=== PATIENT | male | born 1975 | race Caucasian/White ===

== ENCOUNTER 2018-02-07 09:41 | Outpatient (CLI) | END 2018-02-07 09:42 | disposition home or self-care (01) | LOC: RHC-LAB 09:41 | PROVIDERS: ATTEND Emergency Medicine | DX: F33.1 Major depressive disorder, recurrent, moderate (principal); F41.1 Generalized anxiety disorder; N40.1 Benign prostatic hyperplasia with lower urinary tract symptoms; R35.0 Frequency of micturition | CPT/HCPCS: 36415; 80053; 85025 ==

== ENCOUNTER 2018-03-08 12:55 | Inpatient (IN) | payer OTHER ==
[2018-03-08 13:33] VITALS: BMI 31.2
--- NOTE | 2018-03-08 14:05 | ED.PDOC ---
General ED Provider: Dr. MANJIT ADAMS Chief Complaint: Psychiatric Complaint Stated Complaint: PSYCH ISSUES; SEVERE DEPRESSION , PARANOIA. States released from [facility] approximately 6 months ago and restriced from leaving State. Had ankle monitor in place. Family from [place] as is his ex girlfriend. She has been attempting to help him and secured a place in a local motel. Apparenlty met another individual who supplied him with Meth. Pt stopped his psych meds and has been very suspicious and paranoid about his situation-thinking his GF sleeping arround etc and having trouble with reality.Has been to [facility] in past.Stopped his meds.. Came here for evaluation in an extremely fragile state. Accompanied in room with Joycelyn Banks RN Time Seen by Physician: 13:20 Mode of Arrival: Walk-In Information Source: Patient Exam Limitations: No limitations, Clinical condition Primary Care Provider: [facility] Nursing and Triage Documentation Reviewed and Agree: Yes Reviewed sepsis parameters & appropriate labs ordered?: Yes System Inflammatory Response Syndrome: Not Applicable Sepsis Protocol: For patient's 13 years and over: Temp is 96.8 and below OR 101 and greater Pulse >90 BPM Resp >20/minute Acutely Altered Mental Status Are patient's symptoms suggestive of a new infection, such as: -Pneumonia -Skin, Soft Tissue -Endocarditis -UTI -Bone, Joint Infection -Implantable Device -Acute Abdominal Infection -Wound Infection -Meningitis -Blood Stream Catheter Infection -Unknown System Inflammatory Response Syndrome: Not Applicable Psychological Complaint Exam - Psychiatric Complaint/Exam Patient Complains Of: Present: Depression, Suicidal thoughts Symptoms Are: Still present Timing: Constant Episodes Lasting: Hours Initial Severity: Severe Current Severity: Moderate Character: Present: Manic, Depressed, Fearful, Anxious, Angry, Frustrated Aggravating: Reports: Recent stress, Alcohol use, Drug use, Medication noncompliance Associated Signs And Symptoms: Reports: Confused, Hallucinating, Paranoid behavior, Sleep disturbance Related History: Reports: Suicidal thoughts, Recent stressors, Drug ingestion. Denies: Suicidal plan, Suicidal gestures, Homicidal thoughts, Homicidal plan, Homicidal gestures, Prior attempts Completed Suicide Risk Factors: Male, , Living alone, Unemployed Patient Accompanied By: Friend Patient In Custody Of Police: No Social Withdrawal Present: Yes Social Isolation Present: Yes Prior Suicide Attempt: Yes Injury From Prior Suicide Attempt: No Related Surgical History: Reports: None Patient Uncooperative For Exam: No Mood: Present: Depressed, Guarded, Paranoid Appearance: Present: Clean Thought Process: Present: Flight of ideas Insight: Present: Poor Memory: Intact Judgement: Normal Danger To Others: No Patient Medically Stable For: Psych evaluation Differential Diagnoses: Anxiety, Depression, Acute Psychosis, Schizophrenia, Suicidal Ideation Review of Systems - Review Of Systems Constitutional: Reports: No symptoms Eyes: Reports: No symptoms Ears, Nose, Mouth, Throat: Reports: No symptoms Respiratory: Reports: No symptoms Cardiac: Reports: No symptoms GI: Reports: No symptoms : Reports: No symptoms Musculoskeletal: Reports: No symptoms Skin: Reports: No symptoms Neurological: Reports: No symptoms, Depressed, Emotional problems Endocrine: Reports: No symptoms Hematologic/Lymphatic: Reports: No symptoms All Other Systems: Reviewed and Negative Past Medical History - Past Medical History Endocrine: Reports: Dyslipidemia Cardiovascular: Reports: Hypertension Respiratory: Reports: None Hematological: Reports: None Gastrointestinal: Reports: GERD Genitourinary: Reports: Other (bph) Neuro/Psych: Reports: Anxiety, Depression, Schizophrenia, PTSD Musculoskeletal: Reports: None Cancer: Reports: None - Surgical History General Surgical History: Reports: Unknown - Family History Family History: Reports: Unknown - Social History Smoking Status: Current every day smoker Hx Substance Use: (UNKNOWN AT THIS TIME) Alcohol Screening: Occasionally Lives: Alone - Immunizations Tetanus Shot up to Date: No Physical Exam - Physical Exam Appearance: Well-appearing, No pain distress, Well-nourished Ill-appearing: Mild Pain Distress: None Eyes: WISAM, EOMI, Conjunctiva clear ENT: Ears normal, Nose normal, Oropharynx normal Respiratory: Airway patent, Breath sounds clear, Breath sounds equal, Respirations nonlabored Cardiovascular: RRR, Pulses normal, No rub, No murmur GI/: Soft, Nontender, No masses, Bowel sounds normal, No Organomegaly Musculoskeletal: Normal strength, ROM intact, No edema, No calf tenderness Skin: Warm, Dry, Normal color Neurological: Sensation intact, Motor intact, Reflexes intact, Cranial nerves intact, Alert, Oriented Psychiatric: Affect appropriate, Mood appropriate Re-Evaluation - Re-Evaluation Time of Re-Evaluation: 15:00 Status: Improved Vital Signs Stable: Yes Appearance: NAD Lungs: Clear Skin: Warm and Dry Neuro: Alert and Oriented X3 CV: RRR Physician Notification - Case Discussed Physician Notified: Henry Time of Notification: 18:00 (agreed to admisson ) Critical Care Note - Critical Care Note Total Time (mins): 60 Course - Course Hematology/Chemistry: 03/09/18 12:30 03/09/18 12:30 Orders, Labs, Meds: Lab Review 03/08/18 03/08/18 03/08/18 13:32 13:32 14:23 WBC 7.19 RBC 4.66 L Hgb 15.0 Hct 41.1 L MCV 88.2 MCH 32.2 H MCHC 36.5 H RDW Coeff of Umair 11.5 L Plt Count 228 Immature Gran % (Auto) 0.3 Neut % (Auto) 62.7 Lymph % (Auto) 23.8 [place] % (Auto) 12.1 H Eos % (Auto) 0.8 Baso % (Auto) 0.3 Immature Gran # (Auto) 0.0 Neut # (Auto) 4.5 Lymph # (Auto) 1.7 [place] # (Auto) 0.9 Eos # (Auto) 0.1 Baso # (Auto) 0.0 Sodium Potassium Chloride Carbon Dioxide Anion Gap BUN Creatinine Estimated GFR (MDRD) BUN/Creatinine Ratio Glucose Calcium Total Bilirubin AST ALT Alkaline Phosphatase Total Protein Albumin Globulin Albumin/Globulin Ratio TSH Free T4 Urine Color Yellow Urine Clarity Clear Urine pH 6.0 Ur Specific [place] 1.015 Urine Protein Negative Urine Glucose (UA) Negative Urine Ketones Trace Urine Blood Negative Urine Nitrite Negative Urine Bilirubin Negative Urine Urobilinogen 0.2 Ur Leukocyte Esterase Negative Urine Opiates Screen Positive Ur Oxycodone Screen Negative Urine Methadone Screen Negative Ur Propoxyphene Screen Negative Ur Barbiturates Screen Negative U Tricyclic Antidepress Negative Ur Phencyclidine Scrn Negative Ur Amphetamine Screen Positive U Methamphetamines Scrn Positive U Benzodiazepines Scrn Negative Urine Cocaine Screen Negative U Cannabinoids Screen Negative Plasma/Serum Alcohol 03/08/18 14:23 WBC RBC Hgb Hct MCV MCH MCHC RDW Coeff of Umair Plt Count Immature Gran % (Auto) Neut % (Auto) Lymph % (Auto) [place] % (Auto) Eos % (Auto) Baso % (Auto) Immature Gran # (Auto) Neut # (Auto) Lymph # (Auto) [place] # (Auto) Eos # (Auto) Baso # (Auto) Sodium 139 Potassium 3.5 Chloride 101 Carbon Dioxide 25 Anion Gap 16.5 BUN 9 Creatinine 0.85 Estimated GFR (MDRD) 99.00 BUN/Creatinine Ratio 10.58 Glucose 95 Calcium 9.8 Total Bilirubin 1.7 H AST 23 ALT 26 Alkaline Phosphatase 71 Total Protein 7.4 Albumin 4.3 Globulin 3.1 Albumin/Globulin Ratio 1.39 TSH 0.635 Free T4 1.12 Urine Color Urine Clarity Urine pH Ur Specific [place] Urine Protein Urine Glucose (UA) Urine Ketones Urine Blood Urine Nitrite Urine Bilirubin Urine Urobilinogen Ur Leukocyte Esterase Urine Opiates Screen Ur Oxycodone Screen Urine Methadone Screen Ur Propoxyphene Screen Ur Barbiturates Screen U Tricyclic Antidepress Ur Phencyclidine Scrn Ur Amphetamine Screen U Methamphetamines Scrn U Benzodiazepines Scrn Urine Cocaine Screen U Cannabinoids Screen Plasma/Serum Alcohol < 10.0 Orders Category Date Time Status ADMIT PATIENT INPATIENT .TO SCU (MONITORED BED) ADMISSION 03/08/18 18:34 Active EKG-(IP & OP ONLY) Routine CARDIO 03/08/18 18:14 Completed ACTIVITY .Up ad Kalee CARE 03/08/18 18:13 Active INTAKE & OUTPUT Q8HR CARE 03/08/18 18:11 Active INTAKE & OUTPUT Q8HR CARE 03/08/18 18:13 Inactive TELEMETRY MONITORING TELE CARE 03/08/18 18:35 Active VITAL SIGNS Q4HR CARE 03/08/18 18:13 Active REGULAR DIET DIETARY 03/08/18 Dinner Ordered Mental Health Consult [ED MENTAL HEALTH CONSULT] .ONCE EMERGENCY 03/08/18 14: 14 Active BLOOD ALCOHOL Stat LAB 03/08/18 14:23 Completed CBC W/ AUTO DIFF Stat LAB 03/08/18 14:23 Completed CMP [COMPREHENSIVE METABOLIC PANEL] Stat LAB 03/08/18 14:23 Completed FREE T4 (FREE THYROXINE) Stat LAB 03/08/18 14:23 Completed THYROID STIMULATING HORMONE Stat LAB 03/08/18 14:23 Completed UA [URINALYSIS C & S IF INDICATED] Stat LAB 03/08/18 13:32 Completed URINE DRUG SCREEN (RAPID FOR ED) [DRUG SCREEN, URINE, LAB 03/08/18 13:32 Completed RAPID] Stat Clonazepam [Klonopin] MEDS 03/08/18 16:25 Discontinued 1 mg PO ONCE STA Clonidine HCl [Catapres] MEDS 03/08/18 16:22 Discontinued 0.1 mg PO ONCE STA Enoxaparin Sodium [Lovenox] MEDS 03/08/18 18:30 Active 40 mg SUBCUT DAILY Lamotrigine [Lamictal] MEDS 03/08/18 16:30 Discontinued 25 mg PO BID Mirtazapine [Remeron] MEDS 03/08/18 16:26 Discontinued 15 mg PO ONCE STA RESUSCITATION STATUS Routine OTHERS 03/08/18 18:11 Ordered Medications Generic Name Dose Route Start Last Admin Trade Name Celestina PRN Reason Stop Dose Admin Alprazolam 1 mg 03/09/18 09:00 03/11/18 09:09 Xanax PO 1 mg BID HERMAN Administration Buspirone HCl 10 mg 03/08/18 21:00 03/11/18 09:10 Buspar PO 10 mg TID HERMAN Administration Enoxaparin Sodium 40 mg 03/08/18 18:30 03/11/18 09:10 Lovenox SUBCUT 40 mg DAILY HERMAN Administration Escitalopram Oxalate 20 mg 03/09/18 09:00 03/11/18 09:09 Lexapro PO 20 mg DAILY HERMAN Administration Lamotrigine 50 mg 03/09/18 21:00 03/10/18 22:04 Lamictal PO 50 mg BEDTIME HERMAN Administration Mirtazapine 15 mg 03/08/18 21:00 03/10/18 22:04 Remeron PO 15 mg BEDTIME HERMAN Administration Tamsulosin HCl 0.4 mg 03/08/18 21:00 03/11/18 09:10 Flomax PO 0.4 mg DAILY HERMAN Administration Venlafaxine HCl 150 mg 03/09/18 09:00 03/11/18 09:09 Effexor Xr PO 150 mg DAILY HERMAN Administration Discontinued Medications Generic Name Dose Route Start Last Admin Trade Name Celestina PRN Reason Stop Dose Admin Clonazepam 1 mg 03/08/18 16:25 03/08/18 16:55 Klonopin PO 03/08/18 16:26 1 mg ONCE STA Administration Clonidine 0.1 mg 03/08/18 16:22 03/08/18 16:55 Catapres PO 03/08/18 16:23 0.1 mg ONCE STA Administration Lamotrigine 25 mg 03/08/18 16:30 03/08/18 23:31 Lamictal PO Not Given BID HERMAN Lamotrigine 25 mg 03/08/18 21:00 Lamictal PO 2 at bedtime HERMAN Mirtazapine 15 mg 03/08/18 16:26 03/08/18 16:55 Remeron PO 03/08/18 16:27 15 mg ONCE STA Administration Non-Formulary Medication 1 mg 03/08/18 21:00 03/08/18 23:31 Alprazolam [Xanax] PO Not Given BID HERMAN Vital Signs: Temp Pulse Resp BP Pulse Ox 03/08/18 16:23 141/103 H 03/08/18 13:09 97.3 F L 95 H 20 162/115 H 97 Departure - Departure Time of Disposition: 18:30 Disposition: ADMITTED INPATIENT Discharge Problem: Schizophrenia, Anxiety and depression, BPH (benign prostatic hyperplasia) Condition: Good Pt referred to PMD for follow-up: Yes (Henry) IPMP verified?: No Allergies/Adverse Reactions: Allergies No Known Allergies Allergy (Unverified 01/13/18 10:21) Home Medications: Ambulatory Orders Buspirone HCl 10 mg PO TID 01/13/18 Lamotrigine 50 mg PO BEDTIME 01/13/18 Mirtazapine 15 mg PO BEDTIME 01/13/18 Tamsulosin HCl 0.4 mg PO d 01/13/18 Venlafaxine HCl [Effexor Xr] 150 mg PO DAILY 03/08/18 Transfer Form Completed: No Disposition Discussed With: Patient Additional Information: Medications initiated afterwhich patient calmed down and slept well. Mental health here to see patient. Rec referral for inpatient tx however due to pos urine drug screen with METH will not qualifiy therfore will be admitted here for observation and treatment. Discussed with Dr Figueroa who agrees to accept patient for admission. Discussed with patient who concurs Discharge Problem: Schizophrenia Qualifiers: Schizophrenia type: paranoid schizophrenia Qualified Code(s): F20.0 - Paranoid schizophrenia BPH (benign prostatic hyperplasia) Qualifiers: Lower urinary tract symptom presence: symptoms present Lower urinary tract symptom detail: weak urinary stream Qualified Code(s): N40.1 - Benign prostatic hyperplasia with lower urinary tract symptoms; R39.12 - Poor urinary stream; R39.12 - Poor urinary stream
[2018-03-08] MEDS ORDERED: CATAPRES PO STA (16:22)
[2018-03-08] MEDS ORDERED: KLONOPIN PO STA (16:25)
[2018-03-08] MEDS ORDERED: REMERON PO STA (16:26)
[2018-03-08] MEDS ORDERED: LAMICTAL PO SCH (21:00)
[2018-03-08] MEDS ORDERED: NON-FORMULARY MEDICATION (Alprazolam [Xanax] 1 MG) PO SCH (21:00)
[2018-03-08] MEDS: LAMICTAL PO SCH ×2 (21:02→23:31)
[2018-03-08] MEDS: LOVENOX SUBCUT SCH (21:02)
[2018-03-08] MEDS ORDERED: LEXAPRO ONE (21:18)
[2018-03-08] MEDS ORDERED: XANAX ONE (21:18)
[2018-03-08] MEDS: BUSPAR PO SCH (23:31)
[2018-03-08] MEDS: REMERON PO SCH (23:31)
[2018-03-09] MEDS ORDERED: NON-FORMULARY MEDICATION (Venlafaxine Hcl [Effexor Xr] 150 MG) PO SCH (09:00)
[2018-03-09] MEDS ORDERED: NON-FORMULARY MEDICATION (Escitalopram Oxalate [Lexapro] 20 MG) PO SCH (09:00)
[2018-03-09] MEDS: BUSPAR PO SCH ×3 (09:04→21:21)
[2018-03-09] MEDS: EFFEXOR XR PO SCH (09:05)
[2018-03-09] MEDS: XANAX PO SCH ×2 (09:07→21:19)
[2018-03-09] MEDS: LEXAPRO PO SCH (09:07)
[2018-03-09] MEDS: FLOMAX PO SCH ×2 (09:09→09:13)
[2018-03-09] MEDS: LOVENOX SUBCUT SCH (09:10)
[2018-03-09] MEDS: REMERON PO SCH (21:19)
[2018-03-09] MEDS: LAMICTAL PO SCH (21:19)
--- NOTE | 2018-03-10 07:11 | ER ---
HISTORY OF PRESENT ILLNESS: This 43-year-old male patient presented to the emergency room requesting psychiatric evaluation. He states that he has been experiencing a state of mental deterioration and has not been compliant with his medication. He has a known history of paranoid schizophrenia and PTSD. He stopped his medication several weeks ago. Also of interest is that he was released from group home approximately 6 months ago. He stopped all of his medications sometime in mid January. He previously states he had been on Lexapro, Remeron, Buspirone , Alprazolam, Tamsulosin, Mirtazapine, Lamotrigine. He is accompanied by a female acquaintance that has been acquainted with him for several years and apparently they at some point were in a relationship.Since he has been released from group home he was on a monitored ankle bracelet up until the last several weeks. He has not been allowed to leave the [facility]. He is originally from [place]. Arrangements were made by his female friend, who found living arrangements for him to live in a local hotel and that is all he could afford. She states that this has resulted in situations in that he has been exposed to other individuals who apparently have provided him with illicit drugs including methamphetamine. He states that he has just had it and has contemplated suicide. He states he feels so isolated in the fact that he lives by himself and has no local acquaintances other than individuals at the hotel that has befriended him. He is here to seek mental health evaluation and assistance with his condition. [facility] has been requested for consult. PAST MEDICAL HISTORY: 1. Generalized anxiety disorder 2. Dyslipidemia 3. Recurrent major depressive disorder 4. Paranoid schizophrenia 5, PTSD 6. BPH with urinary frequency 7. Medication induced erectile dysfunction SOCIAL HISTORY: As indicated above, positive history of substance abuse. PHYSICAL EXAMINATION: VITAL SIGNS: Blood pressure 162/115, pulse 95, respirations 97.3. GENERAL: Middle-aged male patient who appears quite anxious and mildly diaphoretic. SKIN: Warm and dry. He has multiple tattoos about his skull region, torso and extremities. HEENT: Normocephalic. Eyes, ears, nose and throat are clear. NECK: Soft and supple without adenopathy. No appreciable bruit to auscultation. LUNGS: Clear to auscultation in all leos without wheeze, crackles or rhonchi. CARDIAC: Regular rate and rhythm without murmur, gallop or rub. ABDOMEN: Soft without tenderness, mass, organomegaly or splenomegaly. /RECTAL: Deferred. EXTREMITIES: No clubbing, cyanosis or edema. IMPRESSION: 1. PARANOID SCHIZOPHRENIA - DECOMPENSATED 2. PTSD 3. BPH 4. HYPERTENSION 5. POSITIVE RECENT DRUG USE INCLUDING OPIATES, AMPHETAMINES AND METHAMPHETAMINE PLAN: 1. The patient agrees to remain present and Mental Health has been contacted. They are currently in the department consulting with the patient at this time. Anticipate the patient will need to be admitted to the hospital until his drug screen is negative. Current blood pressure is 141/103. We will initiate Clonidine in attempt to slowly reinitiate his psychotropic medications including Lexapro or Remeron, Lamictal. 2. Further evaluation and treatment depending upon the course of his hospitalization at which time he will be stabilized. Anticipate transfer to mental health facility. PURNIMA
--- NOTE | 2018-03-10 08:00 | HP ---
DATE OF SERVICE: 03/08/18 CHIEF COMPLAINT: Psychiatric complaint. HISTORY OF PRESENT ILLNESS: The patient states that he has been working at the hotel at the desk, the patient states that his girlfriend has been cheating on him. The patient says that he was just released from the [facility]. Concerned, the girlfriend that was cheating sent some people to take care of him. He has thoughts of harming himself and others. The patient's girlfriend is sitting in the room but he doesn 't want her to talk. Thought process is not logical at this time. Otherwise at that time the patient was seen in the emergency room by Dr. Bradshaw. Blood pressure 162/115. Mental Health been called. Blood work was normal, urine negative, toxicology was positive for the Meth. At that time the Mental Health said that toxicology has to be negative before they can place the patient for suicidal ideation and harmful thoughts. At that time the patient is being admitted to the hospital. REVIEW OF SYSTEMS: CONSTITUTIONAL: No fever, no chills. HEENT: Normal. ENDOCRINE: No weight gain; no weight loss. CVS: No chest pain. No PND, no orthopnea. No shortness of breath. No PND, no orthopnea. RESPIRATORY: No cough, no congestion. No hemoptysis. GI: No nausea, no vomiting. No abdominal pain. No melena. : No hematuria. No polyuria. MUSCULOSKELETAL: No joint swelling. PSYCHIATRIC: Anxious. Depression. No suicidal thoughts. No homicidal thoughts. Paranoid, Delusional behavior. Drug lately because patient has been stressed out. No alcohol use. SKIN: Intact, no open lesions. PAST MEDICAL HISTORY: Hypertension GERD Osteoarthritis Schizophrenia Anxiety Depression Meth use Nicotine use BPH PERSONAL HISTORY: The patient has a girlfriend, does smoke and does drink alcohol sometimes. Does Meth and marijuana sometimes. Family history is significant for the high blood pressure. MEDICATIONS: Mirtazapine Buspirone Lamotrigine Tamsulosin Xanax Escitalopram Effexor. ALLERGIES: No known allergies. PHYSICAL EXAMINATION: V/S: Blood pressure 141/103, respiratory rate 20, heart rate 95, temperature 97.2 and saturation is 97%. HEENT: Atraumatic, normocephalic. No scleral icterus. Mucosa dry. NECK: Supple. No JVD, no bruit. No lymphadenopathy. No thyromegaly. HEART: S1, S2 normal. No murmur. No cyanosis or clubbing. No ascites. LUNGS: Clear to auscultation. No rales or rhonchi. ABDOMEN: Soft, nontender. Bowel sounds are active. No CVA tenderness. No rigidity or guarding. EXTREMITIES: No pedal edema. No cyanosis or clubbing MUSCULOSKELETAL: Normal joints, no swelling. SKIN: Intact; no open lesions. The patient has a lot of tattoos all over the body. LYMPHATIC: No lymph nodes palpable. LABS: Sodium 139, potassium 3.5, chloride 101, bicarb 25, BUN 9, creatinine 0.85, glucose 95, WBC 7.19, hgb 15.0, hct 41.1, plt count 223. Drug screen positive for the meth. ASSESSMENT: 1. Suicidal ideation 2. Meth use 3. Anxiety 4. Depression 5. Bipolar PLAN: 1. Admit to the regular floor 2. CBC and CMP today and daily 3. IV fluids which patient is refusing at this time 4. Continue the medications; Xanax, Buspar, Klonopin PRN. The patient was given a Klonopin in the ER and was more calm 5. DVT Prophylaxis with the Lovenox. 6. Continue the rest of the medication; Flomax, Effexor and Mirtazapine. TIME SPENT: MORE THAN 75 minutes MTDD
--- NOTE | 2018-03-10 08:06 | PN ---
DATE OF SERVICE: 03/09/18 SUBJECTIVE: The patient is sitting in the room and very much verbal. He again complains that people were there to hurt him at his home, they came from [place]. The patient's girlfriend is there and the patient's mother is there. He says is no one is trying to help him. He is getting stressed out. Started doing the drugs but he says that he did the one time of meth and no alcohol and no other drugs. Still says that the patient has the ideas and thoughts of hurting himself but he believes that someone is going to help him so he doesn't want to do it at this time. REVIEW OF SYSTEMS: CONSTITUTIONAL: No fever, no chills. HEENT: Normal. ENDOCRINE: No weight gain, no weight loss. CVS: No angina symptoms. No CHF symptoms. No palpitations. No atypical chest pain for CAD. No shortness of breath. No PND, no orthopnea. RESPIRATORY: No cough, no hemoptysis. GI: No nausea, no vomiting. No abdominal pain. : No hematuria. No polyuria. MUSCULOSKELETAL: No joint swelling. PSYCHIATRIC: Not anxious. No depression. No suicidal thoughts. No homicidal thoughts. SKIN: Intact. No rash. PHYSICAL EXAMINATION: V/S: Blood pressure 125/80, respiratory rate 16, heart rate 94, temperature 98.2 and saturation 100. HEENT: Normocephalic, atraumatic. Mucosa dry. NECK: Supple. No JVD, no carotid bruit. No lymphadenopathy. LUNGS: Clear to auscultation. No rales or rhonchi. HEART: S1, S2 normal. No S3. No murmur, gallop or regurgitation. ABDOMEN: Soft, nontender. Bowel sounds active. No rigidity. No rebound or guarding. No CVA tenderness. EXTREMITIES: No pedal edema. No clubbing or cyanosis MUSCULOSKELETAL: No joint swelling. NEUROLOGIC: Awake, alert, oriented times three. No focal deficit. LYMPHATIC: No lymph nodes palpable. SKIN: Intact. LABS: Hgb 14.6, hct 40.1, plt count 202, WBC 7.24, sodium 139, potassium 3.8, chloride 103, bicarb 26, BUN 13, creatinine 1.20 and glucose 101. ASSESSMENT: 1. Suicidal ideation 2. Anxiety 3. Depression 4. Bipolar 5. Paranoid delusional behavior 6. Meth positive in the urine drug screen PLAN: 1. CBC and CMP and drug screen 2. Xanax PRN 3. Placement for the suicidal ideation 4. Continue consultation with Mental Health at this time. TIME SPENT: More than 35 minutes MTDD
[2018-03-10] MEDS: EFFEXOR XR PO SCH (08:59)
[2018-03-10] MEDS: LEXAPRO PO SCH (08:59)
[2018-03-10] MEDS: BUSPAR PO SCH ×4 (08:59→22:04)
[2018-03-10] MEDS: LOVENOX SUBCUT SCH (09:00)
[2018-03-10] MEDS: XANAX PO SCH ×2 (09:00→22:04)
[2018-03-10] MEDS: FLOMAX PO SCH (10:01)
--- NOTE | 2018-03-10 13:17 | PN ---
DATE OF SERVICE: 03/10/18 SUBJECTIVE: This is a 43-year-old male who is stable today, doing fine. REVIEW OF SYSTEMS: CONSTITUTIONAL: No fever, no chills. HEENT: Normal. ENDOCRINE: No weight gain, no weight loss. CVS: No angina symptoms. No CHF symptoms. No palpitations. No atypical chest pain for CAD. No shortness of breath. No PND, no orthopnea. RESPIRATORY: No cough, no hemoptysis. GI: No nausea, no vomiting. No abdominal pain. : No hematuria. No polyuria. MUSCULOSKELETAL: No joint swelling. PSYCHIATRIC: Not anxious. No depression. No suicidal thoughts. No homicidal thoughts. SKIN: Intact. No rash. PHYSICAL EXAMINATION: V/S: Temperature 97.8, pulse 64, BP 125/73, respiratory rate 18, 02 sat 100% on room air. Height 6'3", weight 250 lbs. HEENT: Normocephalic, atraumatic. Mucosa dry. NECK: Supple. No JVD, no carotid bruit. No lymphadenopathy. LUNGS: Clear to auscultation. No rales or rhonchi. HEART: S1, S2 normal. No S3. No murmur, gallop or regurgitation. ABDOMEN: Soft, nontender. Bowel sounds active. No rigidity. No rebound or guarding. No CVA tenderness. EXTREMITIES: No pedal edema. No clubbing or cyanosis MUSCULOSKELETAL: No joint swelling. NEUROLOGIC: Awake, alert, oriented times three. No focal deficit. LYMPHATIC: No lymph nodes palpable. SKIN: Intact. LABS: None today ASSESSMENT: 1. SUICIDAL IDEATION 2. ANXIETY 3. DEPRESSION 4. BIPOLAR DISORDER 5. PARANOID DELUSIONAL BEHAVIOR 6. URINE DRUG SCREEN POSITIVE FOR METH PLAN: 1. Transfer to another facility. 2. The patient is medically stable to be admitted to another facility. TIME SPENT: More than 35 minutes MTDD
[2018-03-10] MEDS: LAMICTAL PO SCH (22:04)
[2018-03-10] MEDS: REMERON PO SCH (22:04)
[2018-03-11] MEDS: EFFEXOR XR PO SCH (09:09)
[2018-03-11] MEDS: LEXAPRO PO SCH (09:09)
[2018-03-11] MEDS: XANAX PO SCH (09:09)
[2018-03-11] MEDS: LOVENOX SUBCUT SCH (09:10)
[2018-03-11] MEDS: FLOMAX PO SCH (09:10)
[2018-03-11] MEDS: BUSPAR PO SCH (09:10)
[2018-03-11 09:23] VITALS: BP 131/71; TEMP 97.7
--- NOTE | 2018-05-14 10:58 | DS ---
DATE OF SERVICE: 03/11/18 FINAL DIAGNOSIS: 1. SUICIDAL IDEATION 2. ACUTE PSYCHOSIS 3. PTSD 4. SCHIZOPHRENIA 5. METH POSITIVE 6. HISTORY OF HYPERTENSION 7. ANXIETY DISCHARGE INSTRUCTIONS: Discharge the patient to police transfer staff. Paperwork is sent, [facility] for suicidal ideation. MEDICATIONS AT DISCHARGE: Lexapro Effexor Xanax BuSpar Catapres Flomax Clonidine Lamictal Remeron Lexapro Lamictal Klonopin NEW PRESCRIPTIONS: N/A DIET INSTRUCTIONS: Healthy Diet ACTIVITY: Bed rest SMOKING: N/A DISEASE SPECIFIC EDUCATION: Drug use, suicidal ideation and depression discussed with the patient multiple times, verbalized understanding. HOSPITAL COURSE: The patient is a 43-year-old male, who came to the emergency room. The patient has been working at a hotel and started feeling that his girlfriend is cheating on him. He was just released from [facility]. He is concerned that the man the girlfriend is going out with is trying to kill him; was talking out of his mind and paranoid. The family brought him in as he was out of his medication. He was evaluated in the emergency room. White count normal. Hemoglobin normal. BUN and creatinine normal. Urine normal. Urine drug screen positive for opiates and amphetamine/methamphetamine positive. With suicidal ideation, the patient was admitted to the hospital for placement. IV fluids were given, started the patient on Xanax, Remeron and Lexapro, Lamictal, Klonopin, Effexor and blood pressure medication. With the given treatment, gradually the patient was awake and alert. Repeat drug screen was done, still positive Amphetamine and Methamphetamine, negative for opiates. Meanwhile, the mental health worker was courteous enough to work and get the placement to [facility]. The patient has been on suicidal precaution and observation. He did not have any complications during the hospital stay. As the placement was confirmed, the patient is being transferred to the facility. TIME SPENT: MORE THAN 65 MINUTES MTDD
== END 2018-03-11 13:40 | disposition short-term general hospital (02) | DRG 885 ==
LOC: ED 12:55 → SCU 19:39
PROVIDERS: ADMIT Emergency Medicine; ATTEND Emergency Medicine
DX: F20.0 Paranoid schizophrenia (principal); R45.851 Suicidal ideations; F23 Brief psychotic disorder; F41.9 Anxiety disorder, unspecified; F32.9 Major depressive disorder, single episode, unspecified; F31.9 Bipolar disorder, unspecified; F43.10 Post-traumatic stress disorder, unspecified; N40.1 Benign prostatic hyperplasia with lower urinary tract symptoms; I10 Essential (primary) hypertension; F15.90 Other stimulant use, unspecified, uncomplicated; F11.90 Opioid use, unspecified, uncomplicated; F17.210 Nicotine dependence, cigarettes, uncomplicated; Z91.14 Patient's other noncompliance with medication regimen; Z79.899 Other long term (current) drug therapy
CPT/HCPCS: 36415; 80053; 80306; 80307; 81001; 84439; 84443; 85025; 87081; 93005; 93010; 99223; 99233; 99239; 99284

== ENCOUNTER 2018-05-07 15:25 | Outpatient (CLI) | END 2018-05-07 15:26 | disposition home or self-care (01) | LOC: RHC-LAB 15:25 | PROVIDERS: ATTEND Emergency Medicine | DX: F33.1 Major depressive disorder, recurrent, moderate (principal); F41.1 Generalized anxiety disorder; F31.9 Bipolar disorder, unspecified ==

== ENCOUNTER 2018-08-05 09:33 | Outpatient (CLI) | END 2018-08-05 09:34 | disposition home or self-care (01) | LOC: LAB 09:33 | PROVIDERS: ATTEND Urology | DX: E29.1 Testicular hypofunction (principal) | CPT/HCPCS: 36415; 84403 ==

== ENCOUNTER 2018-09-13 20:20 | Outpatient (CLI) | END 2018-09-13 20:35 | disposition short-term general hospital (02) | LOC: AMBL 20:20 | PROVIDERS: ATTEND Internal Medicine Geriatric Medicine | DX: F41.9 Anxiety disorder, unspecified (principal); F32.9 Major depressive disorder, single episode, unspecified; Z91.14 Patient's other noncompliance with medication regimen ==